=== PATIENT | female | born 1975 | race Two or more races ===

== ENCOUNTER 2016-10-13 22:52 | Emergency (ER) | payer OTHER ==
[~2016-10-13] VITALS: Ht 154.9 cm; Wt 80.9 kg
[2016-10-13] MEDS ORDERED: MOTRIN600 MG PO (23:57)
[2016-10-14 00:30] VITALS: BP 132/83
[2016-10-14] MEDS ORDERED: FLEXERIL10 MG PO (00:36)
== END 2016-10-14 00:40 | disposition home or self-care (01) ==
LOC: EDBD 22:52 → EME 22:52
DX: S70.01XA Contusion of right hip, initial encounter (principal); V49.10XA Passenger injured in collision with unspecified motor vehicles in nontraffic accident, initial encounter
CPT/HCPCS: 73502; 99281; 99284